=== PATIENT | female | born 1980 | race Two or more races ===

== ENCOUNTER 2016-06-01 13:07 | Observation (INO) | payer SELFPAY ==
[2014-04-25 18:24] VITALS: BP 87/56
[~2016-06-01 13:07] MED LIST: IBUP-1060 PO; OXYC-323 PO; PREN1TAB54 PO
== END 2016-06-01 18:22 | disposition home or self-care (01) ==
LOC: 3 SO LND 13:07
PROVIDERS: ADMIT Obstetrics & Gynecology; ATTEND Obstetrics & Gynecology
DX: O26.893 Other specified pregnancy related conditions, third trimester (principal); R10.30 Lower abdominal pain, unspecified; Z3A.38 38 weeks gestation of pregnancy
CPT/HCPCS: G0378; G0379

== ENCOUNTER 2016-06-07 20:05 | Inpatient (IN) | payer SELFPAY ==
[~2016-06-07] VITALS: Ht 152.4 cm; Wt 93.0 kg
[2016-06-07] MEDS ORDERED: GUAIFENESIN 200 MG/10 ML LIQUID. PO PRN (21:00)
[2016-06-07] MEDS ORDERED: TERBUTALINE 1 MG/ML VIAL. SQ PRN (21:00)
[2016-06-07] MEDS ORDERED: ACETAMINOPHEN 325 MG TABLET. PO PRN (21:00)
[2016-06-07 21:28] VITALS: BP 116/86
[2016-06-07 21:45] LABS: BILIRUBIN,URINE NEGATIVE (NEG); GLUCOSE,URINE NEGATIVE (NEG); NITRITE,URINE NEGATIVE (NEG); PROTEIN,URINE NEGATIVE (NEG-TRACE); UROBILINOGEN,URINE 0.2 mg/dL (0.2 mg/dL)
[2016-06-07 21:56] LABS: BACTERIA,URINE FEW /HPF (0-FEW); RBC,URINE OCC /HPF (0-2); SQUAMOUS EPITHELIAL CELL,UR MOD /LPF; WBC,URINE OCC /HPF (0-4)
[2016-06-07] MEDS ORDERED: DIPHENHYDRAMINE HCL 25 MG CAPSULE PO PRN (22:15)
[2016-06-07] MEDS: IV RINGERS,LACTATED 1000ML 1,000 ML IV SCH ×2 (22:25→23:36)
--- NOTE | 2016-06-07 22:27 | RAD ---
PROCEDURE Limited Ob ultrasound less than 14 weeks 06/07/2016 HISTORY Third trimester with decreased movement. TECHNIQUE A limited real-time ultrasound examination of the gravid uterus was performed. Multiple images were obtained. FINDINGS No previous imaging studies are available for comparison. There is a single living IUP. The fetus is in a cephalic position. cardiac activity is seen. The heart rate is 163 beats per minute. The placenta is anterior. No abnormality of the placenta is seen. The amniotic fluid volume is within normal limits. The TABATHA measures 12.7 centimeters. The following measurements were obtained: BPD 9.28 centimeters 37 weeks 5 days HC 34.0 centimeters 39 weeks 0 days AC 35.1 centimeters 39 weeks 0 days FL 7.8 centimeters 39 weeks 4 days The estimated gestational age by ultrasound is 38 weeks 6 days plus or minus a standard deviation of 3 weeks. The estimated date of delivery by ultrasound is 06/15/2016. The estimated weight is 3648 grams +/-540 grams (8 pounds 1 ounces). Detailed evaluation of anatomy was not performed. No obvious abnormality is seen. IMPRESSION Single living IUP with an estimated gestational age by ultrasound of 38 weeks 6 days plus or minus a standard deviation of 3 weeks. Electronically signed by: Rocael Feliciano MD (Jun 07, 2016 22:25:55)
[2016-06-07 23:15] LABS: BASO % 0 % (0-3); EOS % 0 % (0-3); HEMATOCRIT 37.2 % (36.0-47.0); LYMPH # 1.9 x10^3/uL (1.0-4.8); LYMPH % 22 % (24-48); MEAN CORPUSCULAR HEMOGLOBIN 25 pg (25-35); MEAN CORPUSCULAR HGB CONC 32 g/dL (31-37); MEAN CORPUSCULAR VOLUME 79 fL (79-100); MONO % 7 % (0-9); NEUT % 71 % (31-73); PLATELET COUNT 206 x10^3/uL (140-400); RED BLOOD COUNT 4.73 x10^6/uL (3.50-5.40); RED CELL DISTRIBUTION WIDTH 15.7 % (11.5-14.5); WHITE BLOOD COUNT 8.9 x10^3/uL (4.0-11.0)
[2016-06-07] MEDS: BUTORPHANOL 2 MG VIAL. IV PRN (23:35)
[2016-06-08] MEDS: BUTORPHANOL 2 MG VIAL. IV PRN (02:16)
[2016-06-08] MEDS ORDERED: ROPIVacaine 0.2% IN 0.9%NACL PF 40 MG/20 ML DISP.SYRIN. ONE (04:07)
[2016-06-08] MEDS ORDERED: L&D EPIDURAL CASSETTE 100 ML EP ONE (04:08)
[2016-06-08] MEDS ORDERED: FENTANYL PF 100 MCG/2 ML VIAL. ONE ×2 (04:08→08:09)
[2016-06-08] MEDS: IV RINGERS,LACTATED 1000ML 1,000 ML IV SCH ×3 (04:45→15:45)
[2016-06-08] MEDS ORDERED: EPHEDRINE SULFATE 50 MG/ML VIAL. ONE (04:46)
[2016-06-08] MEDS ORDERED: OXYTOCIN 10 UNIT/ML VIAL. ONE ×2 (04:55→08:54)
[2016-06-08] MEDS ORDERED: PHENYLEPHRINE in 0.9% NACL PF 1 MG/10 ML DISP.SYRIN. IV ONE (04:56)
[2016-06-08] MEDS ORDERED: EPHEDRINE PF IN SALINE 50 MG/5 ML DISP.SYRIN. IV ONE (04:56)
[2016-06-08] MEDS ORDERED: CITRIC ACID/SODIUM CITRATE 30 ML SOLUTION. PO PRN (07:00)
--- NOTE | 2016-06-08 07:32 | PDOC1 ---
OB - History Hx of Present Care: Good Care Ultrasounds: Normal mid trimester US Obstetrical Complications: None Medical Complications: None Past Family/Social History * Past Medical, Surgical, Family and Obstetric Histories reviewed from chart. Rubella: Immune RPR/VDRL: Negative GBS Status: Negative HBsAG: Negative OB - Chief Complaint & HPI Date of Admission: Date of Admission: Jun 07, 2016 at 20:05 Chief Complaint/History : 4 Para: 3 EGA: 38 Reason for admission: active labor, section Indication for : desires repeat Admission Nurse Assessment Rev: Yes Problems: OB - Admission Exam Physical Exam Vitals: VS - Last 72 Hours, by Label Date Time Temp Pulse Resp B/P Pulse Ox O2 Delivery O2 Flow Rate FiO2 06/08/16 04:49 18 Room Air 06/08/16 02:16 20 Room Air 06/07/16 23:35 18 Room Air 06/07/16 21:28 98.8 93 18 116/86 Room Air 98.8 HEENT: Normal Heart: Regular Rate Lungs: Clear, Equal Abdomen: Gravid, Non tender, Soft Extremities: Edema Reflexes: Normal Cervical Dilatation: 2cm Effacement: 25% Station: -3 Membranes: Intact Heart Rate: Normal Accelerations: Accelerations Present Decelerations: No decelerations Short Term Variability: Present Group Home Variability: Moderate Contractions on Admission: 6-10 Minutes Apart Intensity: Mild Text A: 38 wks IUP Previous c/s x 2 Active labor P: Admit for repeat c/s. JANET GREEN Jr, MD Jun 08, 2016 07:32
[2016-06-08] MEDS ORDERED: LIDOCAINE 2% PF Vial for OR 5 ML VIAL. ONE (08:00)
[2016-06-08] MEDS ORDERED: CEFAZOLIN 2GM PREMIX 50 ML IV ONE (08:00)
[2016-06-08] MEDS ORDERED: SODIUM BICARB ADULT 8.4% 50 MEQ/50 ML DISP.SYRIN. ONE (08:01)
[2016-06-08] MEDS ORDERED: EPINEPHRINE 1 MG/ML VIAL. ONE (08:02)
[2016-06-08] MEDS ORDERED: METOCLOPRAMIDE HCL 10 MG/2 ML VIAL. ONE (08:19)
--- NOTE | 2016-06-08 08:53 | PDOC4 ---
OB Operative Note PRE OP DIAGNOSIS: Previoujs C- section (active labor) POST OP DIAGNOSIS: Previoujs C- section (active labor) OPERATION PERFORMED: R [facility] Surgeon Dr. Ramon Anesthesia: Regional (Epidural) Blood Loss 750 ml Specimen placenta and infant OB Findings: Position (Vertex), Sex (Male), (8/9), Weight (3925 Gram), Fluid (Clear) Complications none Additional Remarks pt. stable JANET RAMON Jr, MD Jun 08, 2016 08:53
[2016-06-08] MEDS ORDERED: HYDROMORPHONE STANDARD PCA 30 ML IV PRN (09:00)
[2016-06-08] MEDS ORDERED: KETOROLAC TROMETHAMINE 30 MG/ML SYRINGE. IV PRN (09:00)
[2016-06-08] MEDS ORDERED: DIPHENHYDRAMINE ORAL ELIXIR 12.5 MG/5 ML. PO PRN (09:00)
[2016-06-08] MEDS ORDERED: 0.9 % SODIUM CHLORIDE 10 ML DISP.SYRIN. IV PRN (09:00)
[2016-06-08] MEDS ORDERED: ONDANSETRON PF 4 MG/2 ML VIAL. IV PRN (09:00)
[2016-06-08] MEDS ORDERED: MAG HYDROX/AL HYDROX/SIMETH 30 ML ORAL.SUSP PO PRN (09:00)
[2016-06-08] MEDS ORDERED: ZOLPIDEM 5 MG TABLET. PO PRN (09:00)
[2016-06-08] MEDS ORDERED: OXYTOCIN 30 UNIT/500 ML PREMIX 500 ML IV PRN (09:00)
--- NOTE | 2016-06-08 09:24 | OP ---
DATE OF SURGERY: 06/08/2016 PREOPERATIVE DIAGNOSES: 1. A 38 weeks intrauterine . 2. Previous x 2. 3. Active labor. POSTOPERATIVE DIAGNOSES: 1. A 38 weeks intrauterine . 2. Previous x 2. 3. Active labor. PROCEDURE: Repeat low-transverse section. SURGEON: Dr. Ramon. ANESTHESIA: Epidural. ESTIMATED BLOOD LOSS: 750 mL. COMPLICATIONS: None. FINDINGS: Viable male infant, Apgars 8 and 9, weight 3925 grams. Three-vessel cord. Placenta delivered manually intact. SUMMARY: A 36-year-old, 4 para 3, at 38 weeks' gestation, who presented to Labor and Delivery with contractions. The patient had a history of previous x 2, was found to be in active labor. The patient will require repeat section. She was counseled on the risks, benefits and expectations, and voiced a clear understanding to proceed. DESCRIPTION OF PROCEDURE: The patient was taken to Surgery Suite and placed in dorsal supine position, where she was prepped with ChloraPrep and draped in a sterile fashion. After adequate anesthesia, a Pfannenstiel skin incision was made with scalpel down to and through the fascia. Fascia was extended laterally using curved Ojeda scissors. The superior edge of the fascia was grasped with 2 Terri clamps and dissected free of the abdominal rectus muscle superiorly using blunt dissection along with Bovie cautery. The same process took place inferiorly. The peritoneum was then grasped with 2 hemostats and entered sharply with Metzenbaum scissors. The incision was extended superiorly as well as inferiorly. The Erasmo ring retractor was then placed. A bladder flap was created using sharp dissection with Metzenbaum scissors. A low-transverse hysterotomy incision was created with a scalpel down to and through the amniotic sac. The hysterotomy incision was extended laterally and superiorly digitally. With the aid of fundal pressure, the 's head was delivered in a smooth atraumatic manner. With additional fundal pressure, the anterior shoulder was delivered followed by posterior shoulder and rest of the male was delivered. The was then suctioned with bulb syringe orally and nasally. The umbilical cord was clamped twice and cut. The viable male was handed to waiting nursing staff. Umbilical cord blood was then obtained, 3-vessel cord. Placenta was delivered manually intact. The uterus was exteriorized, cleared of clot and debris with a moist lap. The hysterotomy incision was reapproximated using 1-0 Vicryl suture in a running locked fashion. An imbricated layer was performed as well using 1-0 Vicryl suture for better hemostasis. The uterus palpated firm. Fallopian tubes and ovaries appeared normal. Posterior cul-de-sac was cleared of clot and debris with moist lap. The uterus was then returned to the abdomen. Hysterotomy incision was reviewed and hemostatic. Pericolic gutters were cleared of clot and debris with a moist lap. Interceed was placed over the hysterotomy incision in an inverted-T fashion. The Erasmo ring retractor was removed. The peritoneum was reapproximated using 1-0 Vicryl suture in running fashion. The fascia was reapproximated using 0 Vicryl suture in a running fashion. Skin was reapproximated using 4-0 Vicryl suture in subcuticular manner. The patient tolerated the procedure well and was taken to Recovery Room in stable condition. Sponge and needle counts were correct x 3. JANET RAMON MD DR: AIRAM/garfield JOB#: [id number] / [id number]
[2016-06-08] MEDS: DIPHENHYDRAMINE HCL 25 MG CAPSULE PO PRN ×2 (10:10→17:10)
[2016-06-08 10:12] LABS: OBC FLU VALID
[2016-06-08] MEDS: KETOROLAC TROMETHAMINE 30 MG/ML SYRINGE. IV PRN ×2 (11:41→20:13)
[2016-06-08] MEDS: GUAIFENESIN 200 MG/10 ML LIQUID. PO PRN ×2 (12:12→17:09)
[2016-06-08 12:15] VITALS: BP 125/69
[2016-06-08 13:00] VITALS: BP 115/68
[2016-06-08 14:05] VITALS: BP 120/67
[2016-06-08 14:30] VITALS: BP 106/63
[2016-06-08] MEDS ORDERED: FERROUS SULFATE 325 MG TABLET PO SCH (17:00)
[2016-06-08] MEDS: DOCUSATE SODIUM 100 MG CAPSULE PO PRN (17:09)
[2016-06-08 18:57] VITALS: BP 109/66
[2016-06-08 20:30] VITALS: BP 104/74
[2016-06-09 00:15] VITALS: BP 95/60
[2016-06-09 04:05] VITALS: BP 96/65
[2016-06-09] MEDS: KETOROLAC TROMETHAMINE 30 MG/ML SYRINGE. IV PRN (04:09)
[2016-06-09] MEDS: GUAIFENESIN 200 MG/10 ML LIQUID. PO PRN ×3 (04:09→19:26)
[2016-06-09 05:38] LABS: BASO % 0 % (0-3); EOS % 1 % (0-3); HEMATOCRIT 32.3 % (36.0-47.0); HEMOGLOBIN 10.4 g/dL (12.0-15.5); LYMPH % 25 % (24-48); MEAN CORPUSCULAR HEMOGLOBIN 25 pg (25-35); MEAN CORPUSCULAR HGB CONC 32 g/dL (31-37); MEAN CORPUSCULAR VOLUME 79 fL (79-100); MONO % 8 % (0-9); NEUT % 66 % (31-73); PLATELET COUNT 198 x10^3/uL (140-400); RED CELL DISTRIBUTION WIDTH 15.8 % (11.5-14.5); WHITE BLOOD COUNT 7.9 x10^3/uL (4.0-11.0)
[2016-06-09 07:55] VITALS: BP 100/66
[2016-06-09] MEDS: DOCUSATE SODIUM 100 MG CAPSULE PO PRN (08:20)
[2016-06-09] MEDS: OXYCODONE/APAP 5/325 TABLET. PO PRN ×3 (08:21→20:21)
[2016-06-09] MEDS: DIPHENHYDRAMINE HCL 25 MG CAPSULE PO PRN (08:21)
[2016-06-09] MEDS: SIMETHICONE 80 MG TAB.CHEW PO PRN (08:21)
[2016-06-09 13:20] VITALS: BP 94/66
[2016-06-09] MEDS: IBUPROFEN 800 MG TABLET. PO PRN (13:29)
--- NOTE | 2016-06-09 14:24 | PDOC ---
OB Progress Note Date of Service 06/09/16 Time of Evaluation 1420 Problem List Problems Surgical Problems: (1) S/P repeat low transverse Status: Acute Notes Pt. feeling well. Breast feeding. Pain controlled. Lochia minimal. Pt. ambulating, voiding and tolerating regular diet. Lab Laboratory Tests Test 06/07/16 20:00 06/07/16 22:25 06/08/16 09:25 06/09/16 05:10 Urine Collection Type Unknown Urine Color Yellow Urine Clarity Clear Urine pH 7.0 Urine Specific Fenton <=1.005 Urine Protein Negativemg/dL (NEG-TRACE) Urine Glucose (UA) Negativemg/dL (NEG) Urine Ketones (Stick) 15mg/dL (NEG) Urine Blood Trace (NEG) Urine Nitrite Negative (NEG) Urine Bilirubin Negative (NEG) Urine Urobilinogen Dipstick 0.2mg/dL (0.2 mg/dL) Urine Leukocyte Esterase Negative (NEG) Urine RBC Occ/HPF (0-2) Urine WBC Occ/HPF (0-4) Urine Squamous Epithelial Cells Mod/LPF Urine Bacteria Few/HPF (0-FEW) Urine Mucus Slight/LPF White Blood Count 8.9x10^3/uL (4.0-11.0) 7.9x10^3/uL (4.0-11.0) Red Blood Count 4.73x10^6/uL (3.50-5.40) 4.10x10^6/uL (3.50-5.40) Hemoglobin 12.0g/dL (12.0-15.5) 10.4g/dL (12.0-15.5) Hematocrit 37.2% (36.0-47.0) 32.3% (36.0-47.0) Mean Corpuscular Volume 79fL (79-100) 79fL (79-100) Mean Corpuscular Hemoglobin 25pg (25-35) 25pg (25-35) Mean Corpuscular Hemoglobin Concent 32g/dL (31-37) 32g/dL (31-37) Red Cell Distribution Width 15.7% (11.5-14.5) 15.8% (11.5-14.5) Platelet Count 206x10^3/uL (140-400) 198x10^3/uL (140-400) Neutrophils (%) (Auto) 71% (31-73) 66% (31-73) Lymphocytes (%) (Auto) 22% (24-48) 25% (24-48) Monocytes (%) (Auto) 7% (0-9) 8% (0-9) Eosinophils (%) (Auto) 0% (0-3) 1% (0-3) Basophils (%) (Auto) 0% (0-3) 0% (0-3) Neutrophils # (Auto) 6.3x10^3uL (1.8-7.7) 5.2x10^3uL (1.8-7.7) Lymphocytes # (Auto) 1.9x10^3/uL (1.0-4.8) 2.0x10^3/uL (1.0-4.8) Monocytes # (Auto) 0.6x10^3/uL (0.0-1.1) 0.6x10^3/uL (0.0-1.1) Eosinophils # (Auto) 0.0x10^3/uL (0.0-0.7) 0.0x10^3/uL (0.0-0.7) Basophils # (Auto) 0.0x10^3/uL (0.0-0.2) 0.0x10^3/uL (0.0-0.2) Influenza Type A Antigen Negative (NEGATIVE) Influenza Type B Antigen Negative (NEGATIVE) Laboratory Tests Test 06/09/16 05:10 White Blood Count 7.9x10^3/uL (4.0-11.0) Red Blood Count 4.10x10^6/uL (3.50-5.40) Hemoglobin 10.4g/dL (12.0-15.5) Hematocrit 32.3% (36.0-47.0) Mean Corpuscular Volume 79fL (79-100) Mean Corpuscular Hemoglobin 25pg (25-35) Mean Corpuscular Hemoglobin Concent 32g/dL (31-37) Red Cell Distribution Width 15.8% (11.5-14.5) Platelet Count 198x10^3/uL (140-400) Neutrophils (%) (Auto) 66% (31-73) Lymphocytes (%) (Auto) 25% (24-48) Monocytes (%) (Auto) 8% (0-9) Eosinophils (%) (Auto) 1% (0-3) Basophils (%) (Auto) 0% (0-3) Neutrophils # (Auto) 5.2x10^3uL (1.8-7.7) Lymphocytes # (Auto) 2.0x10^3/uL (1.0-4.8) Monocytes # (Auto) 0.6x10^3/uL (0.0-1.1) Eosinophils # (Auto) 0.0x10^3/uL (0.0-0.7) Basophils # (Auto) 0.0x10^3/uL (0.0-0.2) Medications Current Medications Lactated Ringer's (Iv Lactated Ringers) 1,000 ml @ 125 mls/hr Q8H IV Last administered on 06/08/16 15:45; Start 06/07/16 at 20:48 Acetaminophen (Tylenol) 650 mg PRN Q6HRS PRN PO MILD PAIN / TEMP; Start at 21:00 Terbutaline Sulfate (Brethine) 0.25 mg 1X PRN PRN SQ SEE COMMENTS; Start at 21:00; Stop 06/08/16 at 20:59; Status DC Guaifenesin (Robitussin) 200 mg PRN Q4HRS PRN PO COUGH Last administered on 22:24; Start 06/07/16 at 21:00; Stop 06/08/16 at 09:39; Status DC Diphenhydramine HCl (Benadryl) 25 mg PRN Q6HRS PRN PO ITCHING Last administered on 06/07/16 22:24; Start 06/07/16 at 22:15 Butorphanol Tartrate 2 mg 2 mg PRN Q2HR PRN IV PAIN Last administered on 02:16; Start 06/07/16 at 23:30 Cefazolin Sodium/ Dextrose (Ancef 2gm Premix) 50 ml @ 100 mls/hr 1X ONCE IV Last administered on 06/08/16 07:47; Start 06/08/16 at 08:00; Stop 06/08/16 at 08:29; Status DC Citric Acid/ Sodium Citrate (Bicitra) 30 ml PRN 1X PRN PO PRE-MED ; Start 06/08/16 at 07:00 Ropivacaine 40 mg STK-MED ONCE .ROUTE Last administered on 06/08/16 04:46; Start 06/08/16 at 04:07; Stop 06/08/16 at 04:08; Status DC Fentanyl Citrate 100 mcg 100 mcg STK-MED ONCE .ROUTE ; Start 06/08/16 at 04:08; Stop 06/08/16 at 04:09; Status DC Ropivacaine/ Fentanyl/NS (Bbrxzitb-Ztwwx-LH 3 Mcg-0.1%) 100 ml @ As Directed STK-MED ONCE EP Last administered on 06/08/16 04:49; Start 06/08/16 at 04:08; Stop 06/08/16 at 04:09; Status DC Ephedrine Sulfate (Akovaz) 50 mg STK-MED ONCE .ROUTE ; Start 06/08/16 at 04:46; Stop 06/08/16 at 04:47; Status DC Oxytocin (Pitocin) 10 unit STK-MED ONCE .ROUTE ; Start 06/08/16 at 04:55; Stop 06/08/16 at 04:56; Status DC Phenylephrine HCl 1 mg STK-MED ONCE IV ; Start 06/08/16 at 04:56; Stop 06/08/16 at 04:57; Status DC Ephedrine Sulfate 50 mg STK-MED ONCE IV ; Start 06/08/16 at 04:56; Stop at 04:57; Status DC Ketorolac Tromethamine (Toradol) 30 mg PRN Q6HRS PRN IV PAIN Last administered on 06/09/16 04:09; Start 06/08/16 at 08:00; Stop 06/13/16 at 07:59 Lidocaine HCl (Lidocaine Pf 2% Vial) 5 ml STK-MED ONCE .ROUTE ; Start 06/08/16 at 08:00; Stop 06/08/16 at 08:01; Status DC Sodium Bicarbonate 50 meq STK-MED ONCE .ROUTE ; Start 06/08/16 at 08:01; Stop at 08:02; Status DC Epinephrine HCl (Adrenalin) 1 mg STK-MED ONCE .ROUTE ; Start 06/08/16 at 08:02; Stop 06/08/16 at 08:03; Status DC Fentanyl Citrate (Fentanyl 2ml Vial) 100 mcg STK-MED ONCE .ROUTE ; Start at 08:09; Stop 06/08/16 at 08:10; Status DC Metoclopramide HCl (Reglan) 10 mg STK-MED ONCE .ROUTE ; Start 06/08/16 at 08:19 ; Stop 06/08/16 at 08:20; Status DC Oxytocin (Pitocin) 10 unit STK-MED ONCE .ROUTE ; Start 06/08/16 at 08:54; Stop 06/08/16 at 08:55; Status DC Sodium Chloride 3 ml 3 ml QSHIFT PRN IV AFTER MEDS AND BLOOD DRAWS; Start 06/08 at 09:00 Oxytocin/Sodium Chloride (Oxytocin Premix Infusion) 500 ml @ 125 mls/hr CONT PRN IV EXCESSIVE POST- BLEEDING; Start 06/08/16 at 09:00; Stop 06/08/16 at 16:59; Status DC Ibuprofen (Motrin) 800 mg PRN Q8HRS PRN PO INFLAMMATION Last administered on 13:29; Start 06/08/16 at 09:00 Ondansetron HCl (Zofran) 4 mg PRN Q6HRS PRN IV NAUSEA/VOMITING; Start 06/08/16 at 09:00 Docusate Sodium (Colace) 100 mg PRN BID PRN PO CONSTIPATION Last administered on 06/09/16 08:20; Start 06/08/16 at 09:00 Al Hydroxide/Mg Hydroxide (Mylanta Plus Xs) 30 ml PRN Q4HRS PRN PO HEARTBURN / GAS; Start 06/08/16 at 09:00 Simethicone (Gas-X) 80 mg PRN AFTMEALHC PRN PO GAS / BLOATING Last administered on 06/09/16 08:21; Start 06/08/16 at 09:00 Diphenhydramine HCl (Benadryl Oral Elixir) 12.5 mg PRN Q6HRS PRN PO ITCHING; Start 06/08/16 at 09:00 Ferrous Sulfate (Feosol) 325 mg BIDWMEALS PO Last administered on 06/08/16 17: 10; Start 06/08/16 at 17:00; Stop 06/09/16 at 07:45; Status DC Zolpidem Tartrate (Ambien) 5 mg PRN QHS PRN PO INSOMNIA, MAY REPEAT X1; Start 06/08/16 at 09:00 Oxycodone/ Acetaminophen (Percocet 5/325) 2 tab PRN Q4HRS PRN PO MODERATE PAIN , SEVERE PAIN Last administered on 06/09/16 08:21; Start 06/08/16 at 09:00 Ketorolac Tromethamine 30 mg 30 mg PRN Q6HRS PRN IV PAIN; Start 06/08/16 at 09: 00; Stop 06/13/16 at 08:59 Hydromorphone HCl (Dilaudid Standard [employer]) 30 ml @ 0 mls/hr CONT PRN PRN IV PROTOCOL Last administered on 06/08/16 12:49; Start 06/08/16 at 09:00 Diphenhydramine HCl (Benadryl) 50 mg PRN Q6HRS PRN PO ITCHING Last administered on 06/09/16 08:21; Start 06/08/16 at 09:45 Guaifenesin (Robitussin) 200 mg PRN Q4HRS PRN PO COUGH Last administered on 13:28; Start 06/08/16 at 09:45 Active Scripts Active Ibuprofen 800 Mg Tablet 800 Mg PO Q6H PRN Percocet 5-325 Mg Tablet (Oxycodone/Acetaminophen) 1 Each Tablet 1-2 Tab PO Q4- 6HRS Reported Formula ( Vits W-Ca,Fe,Fa(<1MG)) 1 Each Tablet 1 Each PO Exam Abd: soft, mild tenderness, fundus firm Bandage removed. Incision site clean, dry and intact Assessment POD#1 s/p repeat c/s Plan of Care: Continue current Tx, Mgmt JANET GREEN Jr, MD Jun 09, 2016 14:24
[2016-06-09 23:04] VITALS: BP 93/61
[2016-06-10] MEDS: IBUPROFEN 800 MG TABLET. PO PRN ×2 (01:20→11:05)
[2016-06-10] MEDS: GUAIFENESIN 200 MG/10 ML LIQUID. PO PRN ×4 (01:20→14:44)
[2016-06-10] MEDS: OXYCODONE/APAP 5/325 TABLET. PO PRN ×2 (06:01→14:45)
[2016-06-10 06:12] VITALS: BP 100/71
[2016-06-10] MEDS: DOCUSATE SODIUM 100 MG CAPSULE PO PRN (11:04)
[2016-06-10] MEDS: SIMETHICONE 80 MG TAB.CHEW PO PRN (11:04)
--- NOTE | 2016-06-10 12:41 | PDOC ---
OB Progress Note Date of Service 06/10/16 Time of Evaluation 1235 Problem List Problems Surgical Problems: (1) S/P repeat low transverse Status: Acute Notes Pt. feeling well. No complaints. Lab Laboratory Tests Test 06/09/16 05:10 White Blood Count 7.9x10^3/uL (4.0-11.0) Red Blood Count 4.10x10^6/uL (3.50-5.40) Hemoglobin 10.4g/dL (12.0-15.5) Hematocrit 32.3% (36.0-47.0) Mean Corpuscular Volume 79fL (79-100) Mean Corpuscular Hemoglobin 25pg (25-35) Mean Corpuscular Hemoglobin Concent 32g/dL (31-37) Red Cell Distribution Width 15.8% (11.5-14.5) Platelet Count 198x10^3/uL (140-400) Neutrophils (%) (Auto) 66% (31-73) Lymphocytes (%) (Auto) 25% (24-48) Monocytes (%) (Auto) 8% (0-9) Eosinophils (%) (Auto) 1% (0-3) Basophils (%) (Auto) 0% (0-3) Neutrophils # (Auto) 5.2x10^3uL (1.8-7.7) Lymphocytes # (Auto) 2.0x10^3/uL (1.0-4.8) Monocytes # (Auto) 0.6x10^3/uL (0.0-1.1) Eosinophils # (Auto) 0.0x10^3/uL (0.0-0.7) Basophils # (Auto) 0.0x10^3/uL (0.0-0.2) Medications Current Medications Lactated Ringer's (Iv Lactated Ringers) 1,000 ml @ 125 mls/hr Q8H IV Last administered on 06/08/16t 15:45; Start 06/07/16 at 20:48 Acetaminophen (Tylenol) 650 mg PRN Q6HRS PRN PO MILD PAIN / TEMP; Start at 21:00 Terbutaline Sulfate (Brethine) 0.25 mg 1X PRN PRN SQ SEE COMMENTS; Start at 21:00; Stop 06/08/16 at 20:59; Status DC Guaifenesin (Robitussin) 200 mg PRN Q4HRS PRN PO COUGH Last administered on 22:24; Start 06/07/16 at 21:00; Stop 06/08/16 at 09:39; Status DC Diphenhydramine HCl (Benadryl) 25 mg PRN Q6HRS PRN PO ITCHING Last administered on 06/07/16 22:24; Start 06/07/16 at 22:15 Butorphanol Tartrate 2 mg 2 mg PRN Q2HR PRN IV PAIN Last administered on 02:16; Start 06/07/16 at 23:30 Cefazolin Sodium/ Dextrose (Ancef 2gm Premix) 50 ml @ 100 mls/hr 1X ONCE IV Last administered on 06/08/16 07:47; Start 06/08/16 at 08:00; Stop 06/08/16 at 08:29; Status DC Citric Acid/ Sodium Citrate (Bicitra) 30 ml PRN 1X PRN PO PRE-MED ; Start 06/08/16 at 07:00 Ropivacaine 40 mg STK-MED ONCE .ROUTE Last administered on 06/08/16 04:46; Start 06/08/16 at 04:07; Stop 06/08/16 at 04:08; Status DC Fentanyl Citrate 100 mcg 100 mcg STK-MED ONCE .ROUTE ; Start 06/08/16 at 04:08; Stop 06/08/16 at 04:09; Status DC Ropivacaine/ Fentanyl/NS (Ghzizmcf-Qxozg-PU 3 Mcg-0.1%) 100 ml @ As Directed STK-MED ONCE EP Last administered on 06/08/16 04:49; Start 06/08/16 at 04:08; Stop 06/08/16 at 04:09; Status DC Ephedrine Sulfate (Akovaz) 50 mg STK-MED ONCE .ROUTE ; Start 06/08/16 at 04:46; Stop 06/08/16 at 04:47; Status DC Oxytocin (Pitocin) 10 unit STK-MED ONCE .ROUTE ; Start 06/08/16 at 04:55; Stop 06/08/16 at 04:56; Status DC Phenylephrine HCl 1 mg STK-MED ONCE IV ; Start 06/08/16 at 04:56; Stop 06/08/16 at 04:57; Status DC Ephedrine Sulfate 50 mg STK-MED ONCE IV ; Start 06/08/16 at 04:56; Stop at 04:57; Status DC Ketorolac Tromethamine (Toradol) 30 mg PRN Q6HRS PRN IV PAIN Last administered on 06/09/16t 04:09; Start 06/08/16 at 08:00; Stop 06/13/16 at 07:59 Lidocaine HCl (Lidocaine Pf 2% Vial) 5 ml STK-MED ONCE .ROUTE ; Start 06/08/16 at 08:00; Stop 06/08/16 at 08:01; Status DC Sodium Bicarbonate 50 meq STK-MED ONCE .ROUTE ; Start 06/08/16 at 08:01; Stop at 08:02; Status DC Epinephrine HCl (Adrenalin) 1 mg STK-MED ONCE .ROUTE ; Start 06/08/16 at 08:02; Stop 06/08/16 at 08:03; Status DC Fentanyl Citrate (Fentanyl 2ml Vial) 100 mcg STK-MED ONCE .ROUTE ; Start at 08:09; Stop 06/08/16 at 08:10; Status DC Metoclopramide HCl (Reglan) 10 mg STK-MED ONCE .ROUTE ; Start 06/08/16 at 08:19 ; Stop 06/08/16 at 08:20; Status DC Oxytocin (Pitocin) 10 unit STK-MED ONCE .ROUTE ; Start 06/08/16 at 08:54; Stop 06/08/16 at 08:55; Status DC Sodium Chloride 3 ml 3 ml QSHIFT PRN IV AFTER MEDS AND BLOOD DRAWS; Start 06/08 at 09:00 Oxytocin/Sodium Chloride (Oxytocin Premix Infusion) 500 ml @ 125 mls/hr CONT PRN IV EXCESSIVE POST- BLEEDING; Start 06/08/16 at 09:00; Stop 06/08/16 at 16:59; Status DC Ibuprofen (Motrin) 800 mg PRN Q8HRS PRN PO INFLAMMATION Last administered on t 11:05; Start 06/08/16 at 09:00 Ondansetron HCl (Zofran) 4 mg PRN Q6HRS PRN IV NAUSEA/VOMITING; Start 06/08/16 at 09:00 Docusate Sodium (Colace) 100 mg PRN BID PRN PO CONSTIPATION Last administered on 06/10/16 11:04; Start 06/08/16 at 09:00 Al Hydroxide/Mg Hydroxide (Mylanta Plus Xs) 30 ml PRN Q4HRS PRN PO HEARTBURN / GAS; Start 06/08/16 at 09:00 Simethicone (Gas-X) 80 mg PRN AFTMEALHC PRN PO GAS / BLOATING Last administered on 06/10/16 11:04; Start 06/08/16 at 09:00 Diphenhydramine HCl (Benadryl Oral Elixir) 12.5 mg PRN Q6HRS PRN PO ITCHING; Start 06/08/16 at 09:00 Ferrous Sulfate (Feosol) 325 mg BIDWMEALS PO Last administered on 06/08/16 17: 10; Start 06/08/16 at 17:00; Stop 06/09/16 at 07:45; Status DC Zolpidem Tartrate (Ambien) 5 mg PRN QHS PRN PO INSOMNIA, MAY REPEAT X1; Start 06/08/16 at 09:00 Oxycodone/ Acetaminophen (Percocet 5/325) 2 tab PRN Q4HRS PRN PO MODERATE PAIN , SEVERE PAIN Last administered on 06/10/16 06:01; Start 06/08/16 at 09:00 Ketorolac Tromethamine 30 mg 30 mg PRN Q6HRS PRN IV PAIN; Start 06/08/16 at 09: 00; Stop 06/13/16 at 08:59 Hydromorphone HCl (Dilaudid Standard [employer]) 30 ml @ 0 mls/hr CONT PRN PRN IV PROTOCOL Last administered on 06/08/16 12:49; Start 06/08/16 at 09:00 Diphenhydramine HCl (Benadryl) 50 mg PRN Q6HRS PRN PO ITCHING Last administered on 06/09/16 08:21; Start 06/08/16 at 09:45 Guaifenesin (Robitussin) 200 mg PRN Q4HRS PRN PO COUGH Last administered on 11:07; Start 06/08/16 at 09:45 Active Scripts Active Ibuprofen 800 Mg Tablet 800 Mg PO Q6H PRN Percocet 5-325 Mg Tablet (Oxycodone/Acetaminophen) 1 Each Tablet 1-2 Tab PO Q4- 6HRS Reported Formula ( Vits W-Ca,Fe,Fa(<1MG)) 1 Each Tablet 1 Each PO Exam Abd: soft, mild tenderness, fundus firm Incision site: clean, dry and intact Assessment POD#2 s/p repeat c/s Plan of Care: See new orders (D/c home.) JANET GREEN Jr, MD Jun 10, 2016 12:41
--- NOTE | 2016-06-10 12:41 | DISCH ---
DISCHARGE INSTRUCTIONS Condition on Discharge Condition on Discharge: Stable Activity After Discharge Activity Instructions for Disc: Activity as tolerated Lifting Instructions after Dis: No heavy lifting Driving Instructions after Dis: No driving for 2 weeks Diet after Discharge Diet after Discharge: Regular Contacting the [facility] after DC Call your doctor for: Concerns you may have Follow-Up Follow up with: Dr. Ramon in 2 weeks. JANET RAMON Jr, MD Jun 10, 2016 12:41
[2016-06-10] MEDS ORDERED: GUAI100L12 PO (12:43)
[2016-06-10] MEDS ORDERED: OXYC-323 PO (12:43)
[2016-06-10] MEDS ORDERED: DOCU-27 PO (12:43)
[2016-06-10] MEDS ORDERED: MEASLES, MUMPS & RUBELLA VACC 0.5 ML VIAL. VAX SQ ONE (13:30)
[2016-06-10 15:00] VITALS: BP 111/63
== END 2016-06-10 15:15 | disposition home or self-care (01) | DRG 766 ==
LOC: 3 SO LND 20:05 → OBSVTOIN 20:05 → 3 NORTH 06-08 14:30
PROVIDERS: ADMIT Obstetrics & Gynecology; ATTEND Obstetrics & Gynecology
PROC: 10D00Z1 Extraction of Products of Conception, Low, Open Approach (ICD-10-PCS; principal; 2016-06-08)
DX: O34.211 Maternal care for low transverse scar from previous cesarean delivery (principal); Z37.0 Single live birth; Z3A.38 38 weeks gestation of pregnancy
CPT/HCPCS: 36415; 76815; 81001; 85027; 86593; 86850; 86900; 86901; 87804; 90707; G0378; J0171; J0690; J1170; J1885; J2370; J2590; J2765; J2795; J3010; J7120; Q0163